=== PATIENT | female | born 1955 | race Caucasian/White ===

== ENCOUNTER 2016-10-20 21:03 | Emergency (ER) | payer MEDICAID ==
[2016-10-20 21:11] VITALS: BP 151/73; BMI 24.2
--- NOTE | 2016-10-20 21:38 | DR.GENAD ---
HPI - PCP Primary Care Physician: CHELA KEITH - Complaint/Symptoms Chief Complaint:: BACK AND NECK PAIN - Nurses notes reviewed Nurses Notes Review: Yes - Source History Provided: Patient - Mode of Arrival Mode of Arrival: Ambulatory - Timing Onset of Chief Complaint: 10/20/16 Came on: Gradually - Duration Duration: Constant Duration: Hours - Location Location: entire spine - Severity Severity: Mild - Modifying Factors Worsens:: massage PMH - PMH Past Medical History: No Past Surgical History: Yes - Family History History of Family Medical Conditions: Yes Family Medical History: Cancer, [place] - Social History Does patient currently use any type of tobacco product: Yes Have you used tobacco products in the last 12 months: Yes Type of Tobacco Use: Cigarettes Does any household member use tobacco: No Alcohol Use: Occasionally Do you use any recreational Drugs:: No Lives With: Friend Lives Where: Home - infectious screening In the last 2 months have you had wt loss of >10#?: NO Have you had fever, night sweats or hemotysis?: No Have you traveled outside the country in the last 6 months?: No Isolation: Standard ROS - Review of Systems Constitutional: No Symptoms Reported Eyes: No Symptoms Reported ENTM: No Symptoms Reported Respiratoy: No Symptoms Reported Cardiovascular: No Symptoms Reported Gastrointestinal/Abdominal: No Symptoms Reported Genitourinary: No Symptoms Reported Neurological: No Symptoms Reported Musculoskeletal: Back Pain (arthritis), Neck Pain (arthritis) Integumentary: No Symptoms Reported Hematologic/Lymphatic: No Symptoms Reported Endocrine: No Symptoms Reported Psychiatric: Depression All Other Systems: Reviewed and Negative PE - Vital Signs Vitals: Temperature 97.7 F Pulse Rate 76 Respiratory Rate 16 Blood Pressure 151/73 O2 Sat by Pulse Oximetry 98 - General Limitations: No Limitations General Appearance: Alert, In No Apparent Distress - Head Head Exam: Normal Inspection - Eyes Eye exam: Normal Appearance. negative: Scleral Icterus, Conjunctival Injection - ENT ENT Exam: Normal Exam, Normal Oropharynx External Ear Exam: Normal External Inspection - Neck Neck Exam: Normal Inspection, Full ROM, Trachea Midline - Chest Chest Inspection: Normal Inspection - Respiratory Respiratory Exam: negative: Accessory Muscle Use, Respiratory Distress - Extremities Extremities Exam: Normal Inspection, Full ROM, Tenderness (spine) - Back Back Exam: Normal Inspection - Neurologic Neurological Exam: Alert, Oriented X3, CN II-XII Intact - Psychiatric Psychiatric Exam: Normal Mood - Skin Skin Exam: Intact, Normal Color - Diagnosis Discharge Problem: Arthralgia Qualifiers: Joint pain location: unspecified Qualified Code(s): M25.50 - Pain in unspecified joint - Discharge Plan Condition: Stable Prescriptions: Ibuprofen [Motrin Tab 800 mg] 800 mg PO Q8H PRN #30 tab PRN Reason: Pain/Inflammation Prednisone [Prednisone Tab 10 mg] 1 dose PO PRN PRN #18 tab PRN Reason: - Follow ups/Referrals Follow ups/Referrals: CHELA KEITH [Primary Care Provider] - 3 days - Instructions
[2016-10-20] MEDS ORDERED: TORADOL 60 MG VIAL IM ONE (21:43)
[2016-10-20] MEDS ORDERED: PREDNISONE TAB 20 MG PO ONE ×2 (21:43→21:53)
[2016-10-20] MEDS ORDERED: TORADOL 60 MG VIAL ONE (21:52)
== END 2016-10-20 22:09 | disposition home or self-care (01) ==
LOC: ER 21:13
DX: M12.9 Arthropathy, unspecified (principal); M46.92 Unspecified inflammatory spondylopathy, cervical region
CPT/HCPCS: 96372; 99282; J1885; J7506

== ENCOUNTER 2017-01-24 10:35 | Emergency (ER) | payer MEDICAID ==
[2017-01-24 10:40] VITALS: BMI 25.4
[2017-01-24] MEDS ORDERED: CATAPRES TAB 0.1 MG PO ONE (10:51)
[2017-01-24] MEDS ORDERED: CATAPRES TAB 0.1 MG ONE (10:53)
--- NOTE | 2017-01-24 11:01 | DR.GENAD ---
HPI - PCP Primary Care Physician: keith - Complaint/Symptoms Chief Complaint Doctors Comments: Patient states that she has been out of her blood pressure medication for a few days. She also states that she has been trying arrange moving her double wide to her property which has been stressful. She denies a history of cardiopulmonary disease. Chief Complaint:: patient stated she was is dizzy and head hurts. she stated she has been having high blood pressure for awhile and has been taken hctz but it is not working - Source History Provided: Patient - Mode of Arrival Mode of Arrival: Ambulatory - Timing Onset of Chief Complaint: 12/01/16 PMH - PMH Past Medical History: Yes Past Medical History: Dyslipidemia, Hypertension Past Surgical History: Yes Surgical History: Abdominal Surgery - Family History History of Family Medical Conditions: Yes Family Medical History: Cancer, [place] - Social History Does patient currently use any type of tobacco product: Yes Have you used tobacco products in the last 12 months: Yes Type of Tobacco Use: Cigarettes How many years tobacco product used: 40 Does any household member use tobacco: No Alcohol Use: None Do you use any recreational Drugs:: No Lives With: Family Lives Where: Home - infectious screening In the last 2 months have you had wt loss of >10#?: NO Have you had fever, night sweats or hemotysis?: No Have you traveled outside the country in the last 6 months?: No Isolation: Standard ROS - Review of Systems Eyes: No Symptoms Reported ENTM: No Symptoms Reported Respiratoy: No Symptoms Reported Cardiovascular: No Symptoms Reported Gastrointestinal/Abdominal: No Symptoms Reported Genitourinary: No Symptoms Reported Neurological: No Symptoms Reported Musculoskeletal: No Symptoms Reported Integumentary: No Symptoms Reported Hematologic/Lymphatic: No Symptoms Reported Endocrine: No Symptoms Reported Psychiatric: No Symptoms Reported All Other Systems: Reviewed and Negative PE - Vital Signs Vitals: Temperature 99.1 F Pulse Rate [Left Brachial] 79 Pulse Rate 76 Respiratory Rate 20 Blood Pressure [Left Arm] 173/73 Blood Pressure 213/99 O2 Sat by Pulse Oximetry 99 - General Limitations: No Limitations General Appearance: Alert, In No Apparent Distress - Head Head Exam: Normal Inspection, Atraumatic - Eyes Eye exam: Normal Appearance, PERRL, EOMI - ENT ENT Exam: Normal Exam External Ear Exam: Normal External Inspection TM/Canal Exam: Bilateral Normal Nose Exam: Normal Nose Exam Mouth Exam: Normal Inspection Throat Exam: Normal Inspection - Neck Neck Exam: Normal Inspection, Full ROM - Chest Chest Inspection: Normal Inspection - Respiratory Respiratory Exam: Normal Lung Sounds Bilat Respiratory Exam: Bilateral Clear to Auscultation - Cardiovascular Cardiovascular Exam: Regular Rate, Normal Rhythm - Abdominal Exam Abdominal Exam: Normal Inspection, Normal Bowel Sounds Abdominal Tenderness: negative: RUQ, RLQ, LUQ, LLQ, Epigastrium, Suprapubic, Diffuse, Mild, Moderate, Severe, Other - Extremities Extremities Exam: Normal Inspection, Full ROM - Back Back Exam: Normal Inspection - Neurologic Neurological Exam: Alert, Oriented X3, CN II-XII Intact - Psychiatric Psychiatric Exam: Normal Affect - Skin Skin Exam: Warm, Dry, Intact Course - Reevaluation 1st: Improved ROR - Labs Reviewed Result Diagrams: 01/24/17 11:00 01/24/17 11:00 Laboratory: WBC 8.0 X10^3/uL (3.6-10.0) 01/24/17 11:00 RBC 3.86 X10^6/uL (3.5-5.4) 01/24/17 11:00 Hgb 13.0 g/dL (12.0-16.0) 01/24/17 11:00 Hct 36.2 % (36.0-47.0) 01/24/17 11:00 MCV 93.8 fL (80.0-100.0) 01/24/17 11:00 MCH 33.7 pg (27.0-34.0) 01/24/17 11:00 MCHC 36.0 g/dL (33.0-35.0) H 01/24/17 11:00 RDW 13.0 % (11.6-16.5) 01/24/17 11:00 Plt Count 259 X10^3/uL (150.0-450.0) 01/24/17 11:00 MPV 7.3 fL (7.4-11.0) L 01/24/17 11:00 Neut % 63.3 % (42.0-75.0) 01/24/17 11:00 Lymph % 23.3 % (21.0-51.0) 01/24/17 11:00 Crook % 10.9 % (0.0-13.0) 01/24/17 11:00 Eos % 1.4 % (0.9-2.9) 01/24/17 11:00 Baso % 1.1 % (0.2-1.0) H 01/24/17 11:00 Neut # 5.1 x10^3/uL (2.2-4.8) H 01/24/17 11:00 Lymph # 1.9 X10^3/uL (1.3-2.9) 01/24/17 11:00 Crook # 0.9 x10^3/uL (0.3-0.8) H 01/24/17 11:00 Eos # 0.1 x10^3/uL (0.0-0.2) 01/24/17 11:00 Baso # 0.1 X10^3/uL (0.0-0.1) 01/24/17 11:00 Absolute Nucleated RBC 0.0 /100WBC 01/24/17 11:00 Sodium 127 mmol/L (136-145) L 01/24/17 11:00 Corrected Sodium TNP 01/24/17 11:00 Potassium 3.8 mmol/L (3.5-5.1) 01/24/17 11:00 Chloride 94 mmol/L (98-107) L 01/24/17 11:00 Carbon Dioxide 28.1 mmol/L (21-32) 01/24/17 11:00 BUN 6 mg/dL (7-18) L 01/24/17 11:00 Creatinine 0.68 mg/dL (0.55-1.02) 01/24/17 11:00 Est GFR (MDRD) Af Amer > 60 (>60) 01/24/17 11:00 Est GFR (MDRD) Non-Af > 60 (>60) 01/24/17 11:00 Glucose 84 mg/dL (65-99) 01/24/17 11:00 Calcium 9.0 mg/dL (8.5-10.1) 01/24/17 11:00 Corrected Calcium TNP 01/24/17 11:00 Total Bilirubin 0.40 mg/dL (0.2-1.0) 01/24/17 11:00 AST 26 Units/L (15-37) 01/24/17 11:00 ALT 30 Units/L (12-78) 01/24/17 11:00 Alkaline Phosphatase 98 Units/L (46-116) 01/24/17 11:00 Total Protein 7.0 g/dL (6.4-8.2) 01/24/17 11:00 Albumin 4.1 g/dL (3.4-5.0) 01/24/17 11:00 Globulin 2.9 g/dL (2.5-4.5) 01/24/17 11:00 Albumin/Globulin Ratio 1.4 Ratio (1.1-2.1) 01/24/17 11:00 Specimen Type Clean catch urine 01/24/17 11:18 Urine Color Yellow (YELLOW) 01/24/17 11:18 Urine Appearance Clear (CLEAR) 01/24/17 11:18 Urine pH 7.0 (5.0 - 8.0) 01/24/17 11:18 Ur Specific [place] 1.005 (1.000-1.030) 01/24/17 11:18 Urine Protein Negative (NEGATIVE) 01/24/17 11:18 Urine Glucose (UA) Negative (NEGATIVE) 01/24/17 11:18 Urine Ketones Negative (NEGATIVE) 01/24/17 11:18 Urine Occult Blood Negative (NEGATIVE) 01/24/17 11:18 Urine Nitrite Negative (NEGATIVE) 01/24/17 11:18 Urine Bilirubin Negative (NEGATIVE) 01/24/17 11:18 Urine Urobilinogen Normal (NORMAL) 01/24/17 11:18 Ur Leukocyte Esterase Negative (NEGATIVE) 01/24/17 11:18 Urine RBC 0-2 /HPF (NEGATIVE) 01/24/17 11:18 Urine WBC 0-2 /HPF (NEGATIVE) 01/24/17 11:18 Ur Squamous Epith Cells Negative /HPF (NEGATIVE) 01/24/17 11:18 Urine Bacteria Trace /HPF (NEGATIVE) 01/24/17 11:18 Ur Culture Indicated? No/not indicated 01/24/17 11:18 - Diagnosis Discharge Problem: Hyponatremia Hypertension Qualifiers: Hypertension type: unspecified Qualified Code(s): I10 - Essential (primary) hypertension - Discharge Plan Condition: Stable Prescriptions: Hydrochlorothiazide [Hydrochlorothiazide 25 mg Tab] 25 mg PO QAM #30 tab - Follow ups/Referrals Follow ups/Referrals: CHELA KEITH [Primary Care Provider] - 3 days - Instructions
[2017-01-24 11:13] LABS: BASOPHILS # (AUTO) 0.1 X10^3/uL (0.0-0.1); BASOPHILS % (AUTO) 1.1 % (0.2-1.0); EOSINOPHILS # (AUTO) 0.1 x10^3/uL (0.0-0.2); EOSINOPHILS % (AUTO) 1.4 % (0.9-2.9); HEMATOCRIT 36.2 % (36.0-47.0); LYMPHOCYTES # (AUTO) 1.9 X10^3/uL (1.3-2.9); LYMPHOCYTES % (AUTO) 23.3 % (21.0-51.0); MEAN CORPUSCULAR HEMOGLOBIN 33.7 pg (27.0-34.0); MEAN CORPUSCULAR VOLUME 93.8 fL (80.0-100.0); MEAN PLATELET VOLUME 7.3 fL (7.4-11.0); MONOCYTES # (AUTO) 0.9 x10^3/uL (0.3-0.8); MONOCYTES % (AUTO) 10.9 % (0.0-13.0); NEUTROPHILS # (AUTO) 5.1 x10^3/uL (2.2-4.8); NEUTROPHILS % (AUTO) 63.3 % (42.0-75.0); PLATELET COUNT 259 X10^3/uL (150.0-450.0); RED BLOOD COUNT 3.86 X10^6/uL (3.5-5.4)
[2017-01-24 11:25] LABS: ALANINE AMINOTRANSFERASE 30 Units/L (12-78); ALBUMIN 4.1 g/dL (3.4-5.0); ALKALINE PHOSPHATASE 98 Units/L (46-116); ASPARTATE AMINO TRANSFERASE 26 Units/L (15-37); BLOOD UREA NITROGEN 6 mg/dL (7-18); CARBON DIOXIDE 28.1 mmol/L (21-32); CHLORIDE 94 mmol/L (98-107); CREATININE 0.68 mg/dL (0.55-1.02); GLUCOSE 84 mg/dL (65-99); SODIUM 127 mmol/L (136-145); eGFR BLACK RACES > 60 (>60); eGFR NON BLACK RACES > 60 (>60)
[2017-01-24 11:37] LABS: BILIRUBIN,URINE NEGATIVE (NEGATIVE); BLOOD/HEMOGLOBIN,URINE NEGATIVE (NEGATIVE); GLUCOSE, URINE NEGATIVE (NEGATIVE); KETONES,URINE NEGATIVE (NEGATIVE); LEUKOCYTE ESTERASE ,URINE NEGATIVE (NEGATIVE); NITRITES,URINE NEGATIVE (NEGATIVE); PROTEIN,URINE NEGATIVE (NEGATIVE); UROBILINOGEN,URINE NORMAL (NORMAL)
[2017-01-24] MEDS ORDERED: MOTRIN TAB 600 MG PO ONE ×2 (11:40→11:41)
[2017-01-24 11:43] LABS: APPEARANCE,URINE CLEAR (CLEAR); BACTERIA,URINE TRACE /HPF (NEGATIVE); COLOR,URINE YELLOW (YELLOW); RBC,URINE 0-2 /HPF (NEGATIVE); SQUAMOUS EPITHELIAL CELL,UR NEGATIVE /HPF (NEGATIVE)
[2017-01-24] MEDS ORDERED: NS 1000 ML 1,000 ML IV ONE (11:52)
[2017-01-24] MEDS ORDERED: NS 1000 ML 1,000 ML ONE (11:56)
[2017-01-24 13:06] VITALS: BP 176/73
== END 2017-01-24 13:06 | disposition home or self-care (01) ==
LOC: ER 11:06
DX: E87.1 Hypo-osmolality and hyponatremia (principal); I10 Essential (primary) hypertension
CPT/HCPCS: 36415; 80053; 81001; 85025; 96365; 96367; 99283; A4222

== ENCOUNTER → 2017-06-16 | Outpatient (CLI) | payer MEDICAID ==
[2017-06-16 10:41] LABS: BILIRUBIN,URINE NEGATIVE (NEGATIVE); BLOOD/HEMOGLOBIN,URINE NEGATIVE (NEGATIVE); GLUCOSE, URINE NEGATIVE (NEGATIVE); KETONES,URINE NEGATIVE (NEGATIVE); LEUKOCYTE ESTERASE ,URINE NEGATIVE (NEGATIVE); NITRITES,URINE NEGATIVE (NEGATIVE); PH,URINE 6.5 (5.0 - 8.0); PROTEIN,URINE NEGATIVE (NEGATIVE); UROBILINOGEN,URINE NORMAL (NORMAL)
[2017-06-16 10:44] LABS: BASOPHILS # (AUTO) 0.1 X10^3/uL (0.0-0.1); BASOPHILS % (AUTO) 0.6 % (0.2-1.0); EOSINOPHILS # (AUTO) 0.1 x10^3/uL (0.0-0.2); EOSINOPHILS % (AUTO) 1.3 % (0.9-2.9); HEMATOCRIT 41.6 % (36.0-47.0); HEMOGLOBIN 14.6 g/dL (12.0-16.0); LYMPHOCYTES # (AUTO) 1.6 X10^3/uL (1.3-2.9); LYMPHOCYTES % (AUTO) 19.2 % (21.0-51.0); MEAN CORPUSCULAR HEMOGLOBIN 33.2 pg (27.0-34.0); MEAN CORPUSCULAR VOLUME 94.6 fL (80.0-100.0); MEAN PLATELET VOLUME 8.1 fL (7.4-11.0); MONOCYTES # (AUTO) 0.6 x10^3/uL (0.3-0.8); MONOCYTES % (AUTO) 7.5 % (0.0-13.0); NEUTROPHILS # (AUTO) 5.9 x10^3/uL (2.2-4.8); NEUTROPHILS % (AUTO) 71.4 % (42.0-75.0); PLATELET COUNT 224 X10^3/uL (150.0-450.0); RED BLOOD COUNT 4.39 X10^6/uL (3.5-5.4); WHITE BLOOD COUNT 8.2 X10^3/uL (3.6-10.0)
[2017-06-16 10:47] LABS: APPEARANCE,URINE CLEAR (CLEAR); BACTERIA,URINE TRACE /HPF (NEGATIVE); COLOR,URINE YELLOW (YELLOW); RBC,URINE 0-2 /HPF (NEGATIVE); SQUAMOUS EPITHELIAL CELL,UR FEW /HPF (NEGATIVE)
[2017-06-16 10:56] LABS: ALANINE AMINOTRANSFERASE 25 Units/L (12-78); ALBUMIN 3.7 g/dL (3.4-5.0); ALKALINE PHOSPHATASE 107 Units/L (46-116); ASPARTATE AMINO TRANSFERASE 19 Units/L (15-37); BLOOD UREA NITROGEN 12 mg/dL (7-18); CARBON DIOXIDE 26.1 mmol/L (21-32); CHLORIDE 98 mmol/L (98-107); CREATININE 0.79 mg/dL (0.55-1.02); SODIUM 131 mmol/L (136-145); TOTAL PROTEIN 7.1 g/dL (6.4-8.2); eGFR BLACK RACES > 60 (>60); eGFR NON BLACK RACES > 60 (>60)
--- NOTE | 2017-06-16 14:02 | RAD ---
Examination: Chest, PA and lateral views History: Preop neck surgery. Comparison reference: None Findings: Normal heart size with no evidence for acute pulmonary or hilar or mediastinal lesion. Ther e is tenting deformity of the left diaphragm and costophrenic angle. Impression: Pleural deformity at the left base is probably related to chronic pleural thickening. Com parison with prior imaging would be helpful to exclude a more acute process. Otherwise, negative ches t. Reported By:
== END ==
LOC: LAB 10:15
PROVIDERS: ATTEND Obstetrics & Gynecology Obstetrics
DX: Z01.818 Encounter for other preprocedural examination (principal); Z01.810 Encounter for preprocedural cardiovascular examination; Z01.811 Encounter for preprocedural respiratory examination; M54.12 Radiculopathy, cervical region
CPT/HCPCS: 36415; 71046; 80053; 81001; 85025; 85610; 85730

== ENCOUNTER 2017-10-02 21:09 | Emergency (ER) | payer MEDICAID ==
[2017-10-02 21:18] VITALS: BP 135/78; BMI 22.8
--- NOTE | 2017-10-02 22:35 | DR.EXTPAIN ---
HPI - Time seen Time seen: 22:31 - PCP Primary Care Physician: Dr. Keith - Complaint/Symptoms Chief Complaint Doctor Comments: Patient states around noon she had problems controlling her left leg and fell. States she is able to lift her left leg but not very high. She is having problems moving both lower legs. States she had neck fusion about ten weeks ago due to arthritis. states she has been having a headache and feeling dizzy today.She denies chest pain or SOB. States her tetanus is not up to date. Chief Complaint:: around lunchtime started feeling very weak and not being able to control her legs or arms Self Treatment fo Chief Complaint: Tramadol 50mg po taken for pain before coming into ER - Nurses notes reviewed Nurses Notes Review: Yes - Source History Provided: Patient - Mode of arrival Mode of Arrival: Wheelchair - Timing Onset of Chief Complaint: 10/01/17 - Context History of: Arthritis - Associated signs and symptoms Associated Signs and Symptoms: Abrasion, Laceration (left leg), Weakness (left leg), Pain, Bruising (left leg and foot), Headache PMH - PMH Past Medical History: Yes Past Medical History: Anxiety, COPD, Depression, Dyslipidemia, Hypertension Past Surgical History: Yes Surgical History: Ortho Surgery - Family History History of Family Medical Conditions: Yes Family Medical History: Cancer - Social History Does patient currently use any type of tobacco product: Yes Have you used tobacco products in the last 12 months: Yes Type of Tobacco Use: Cigarettes Does any household member use tobacco: Yes Alcohol Use: Occasionally Do you use any recreational Drugs:: No Lives With: Friend Lives Where: Home - infectious screening In the last 2 months have you had wt loss of >10#?: NO Have you had fever, night sweats or hemotysis?: No Have you traveled outside the country in the last 6 months?: No Isolation: Standard ROS - Review of Systems Constitutional: No Symptoms Reported, Weakness Eyes: No Symptoms Reported. negative: See HPI, Eye Pain, Blurred Vision, Tearing, Discharge, Photophobia, Diplopia, Other ENTM: No Symptoms Reported, Nose Congestion Respiratoy: No Symptoms Reported Cardiovascular: No Symptoms Reported. negative: See HPI, Chest Pain, Edema, Palpitations, Syncope, Cyanosis, Skin Mottling, Other Gastrointestinal/Abdominal: No Symptoms Reported. negative: See HPI, Abdominal Pain, Constipation, Diarrhea, Nausea, Vomiting, Food Intolerance, Other Genitourinary: No Symptoms Reported. negative: See HPI, Discharge, Dysuria, Frequency, Hematuria, Pain, Bleeding, Other Neurological: No Symptoms Reported, Headache, Numbness, Paresthesia (left lower leg), Weakness, Problems Walking Musculoskeletal: No Symptoms Reported, Left, Leg, Knee Integumentary: Change in Hair/Nails, Lesions, Wound, Bruises Hematologic/Lymphatic: No Symptoms Reported. negative: See HPI, Anemia, Blood Clots, Easy Bleeding, Easy Bruising, Swollen Glands, Lymphadenopathy, Other Endocrine: No Symptoms Reported, See HPI. negative: Excessive Sweating, Flushing, Intolerance to Cold, Intolerance to Heat, Increased Hunger, Increased Thirst, Increased Urine, Unexplained Weight Gain, Unexplained Weight Loss, Failure to Thrive, Decreased Appetite, Other Psychiatric: No Symptoms Reported. negative: See HPI, Anxiety, Depression, Hallucinations, Excessive crying, Suicidal, Other PE - Vital Signs Vitals: Temperature 98.4 F Pulse Rate 107 Respiratory Rate 20 Blood Pressure [Left Arm] 176/73 Blood Pressure 135/78 O2 Sat by Pulse Oximetry 94 - General Limitations: No Limitations General Appearance: Alert, In Distress (slight) - Head Head Exam: Normal Inspection, Atraumatic, Normocephalic - Eyes Eye exam: Normal Appearance, PERRL, EOMI. negative: Scleral Icterus, Conjunctival Injection, Nystagmus, Miosis, Mydrasis, Periorbital Swelling, Periorbital Tenderness, Other - ENT ENT Exam: Normal Exam, Normal Oropharynx, Normal External Ear Exam, Mucous Membranes Moist, TM's Normal Bilaterally - Neck Neck Exam: Normal Inspection, Full ROM, Trachea Midline - Chest Chest Inspection: Normal Inspection. negative: Symmetric Chest Wall Rise, Tenderness, Rash, Abscess, Other - Respiratory Respiratory Exam: Normal Lung Sounds Bilat. negative: Accessory Muscle Use, Chest Wall Tenderness, Prolonged Expiratory Phase, Respiratory Distress, Stridor , Other Respiratory Exam: Bilateral Clear to Auscultation - Cardiovascular Cardiovascular Exam: Regular Rate, Normal Rhythm, Normal Heart Sounds - Abdominal Exam Abdominal Exam: Normal Bowel Sounds, Soft Abdominal Tenderness: negative: RUQ, RLQ, LUQ, LLQ, Epigastrium, Suprapubic, Diffuse, Mild, Moderate, Severe, Other - Extremities Extremities Exam: Normal Inspection, Full ROM, Normal Capillary Refill. negative: Tenderness - Upper Extremities Shoulder Exam: Normal Inspection, Full ROM Arm Exam: Normal Inspection, Full ROM Elbow Exam: Normal Inspection, Full ROM Forearm Exam: Normal Inspection, Full ROM Hand Exam: Normal Inspection, Full ROM Neuromotor Exam: Normal Exam, Wrist Extension Hand Tendon Exam: negative: Flexor Digitorium Profundus (Location), Flexor Digitorium Superficialis (Location), Extensor Tendon (Location), Other Upper Ext. Vascular Exam: Capillary Refill - Lower Extremities Hip/Pelvis Exam: Normal Inspection, Full ROM, Tenderness Upper Leg Exam: Normal Inspection, Full ROM Knee Exam: Normal Inspection, Full ROM Lower Leg Exam: Normal Inspection, Full ROM Ankle Exam: Normal Inspection, Full ROM, Swelling, Abrasion, Ecchymosis (left foot with hyperpigmentation) Foot/Toe Exam: Normal Inspection, Full ROM, Tenderness, Ecchymosis (left foot) Neurovascular/Tendon Exam: Normal Capillary Refill Gait Exam: Not Tested/Not Observed (wheel chair) - Back Back Exam: Normal Inspection, Full ROM - Neurological Neurological Exam: Alert, Oriented X3, CN II-XII Intact, Motor Sensory Deficit, Reflexes Normal. negative: Normal Gait - Psychiatric Psychiatric Exam: Normal Affect, Normal Mood. negative: Depressed, Agitated, Anxious, Flat Affect, Manic, Homicidal Ideation, Suicidal Ideation, Other - Skin Skin Exam: Warm, Dry, Intact, Normal Color Type of Lesion: negative: Rash, Abscess, Laceration, Foreign Body, Bite/Sting, Abrasion, Other Distribution: negative: Generalized, Involves Palms/Soles, Head, Face, Neck, Thorax, Chest, Back, Abdomen, Genitals, LUE, LLE, RUE, RLE, Other Description: negative: Size, Tenderness, Erythematous, Swelling, Macular, Papular, Vesicular, Blisters, Cofluent, Bullous, Petechial, Purpuric, Urticarial , Crusting, Discharge, Fluctuant, Indurated, Other ROR - Labs Reviewed Laboratory Results Reviewed?: Yes (Patient left before all x-ray results and labs were ready) Result Diagrams: 10/02/17 23:29 10/02/17 23:29 - XRAY XRAY Interpreted by: Radiologist (CT lumbar spine: Degeneratiave change without severe stenosis) - Diagnosis Discharge Problem: Degenerative disc disease, lumbar, Contusion of left lower leg Low back pain Qualifiers: Sciatica presence: without sciatica - Discharge Plan Disposition: AGAINST MEDICAL ADVICE Condition: Stable - Follow ups/Referrals Follow ups/Referrals: CHELA KEITH [Primary Care Provider] - 3 days - Instructions
--- NOTE | 2017-10-02 23:31 | CT ---
CT cervical spine without contrast Indication: Neck pain and left leg numbness Technique: Helical images through the cervical spine without contrast. Coronal and sagittal reformats provided. Findings: There is hardware at the C5 through C7, with disc ectomy and disc degenerative changes. No severe stenosis seen with mild right neural foraminal narrowing at C5-C6 noted due to osteophytes. Th e craniocervical junction and cervicothoracic junctions are intact. Upper thoracic spine is normal. S leslie canal is relatively patent for CT technique. Prevertebral soft tissues are normal. At soft tiss ues of the upper chest and neck show no acute abnormality with minimal vascular plaque. Posterior fos sa structures are intact. Impression: 1. No acute fracture 2. Mild degenerative changes without severe stenosis. Reported By:
--- NOTE | 2017-10-02 23:31 | CT ---
Exam: Head CT without contrast History: 61-year-old male with headache and left leg numbness Comparison: None Technique: Axial imaging was performed from the vertex to the base the skull without intravenous cont rast being administered. Subsequently coronal and sagittal reformations were generated. Automated exp osure control technique was used with this exam Findings: No evidence of intracranial hemorrhage, extracerebral fluid collections, or intracranial mass. Ventri cles are symmetric in size and position with no mass effect identified. Patchy low density is present in a periventricular deep white matter distribution. This most likely reflects mild degree of chroni c small vessel ischemic change. On the bone windows, no acute abnormality is seen. Visualized aspect of the paranasal sinuses and mastoid air cells are clear. Impression: No acute intracranial abnormality is seen on this exam. Reported By:
--- NOTE | 2017-10-02 23:33 | CT ---
CT lumbar spine without contrast Indication: Lower back pain and left leg numbness. Technique: Helical images through the lumbar spine without contrast. Coronal and sagittal reformats p rovided. Findings: Urinary bladder is distended. Vascular plaque is seen in the aorta. Vertebral body heights are normal. There is lower lumbar spine facet arthropathy and disc degenerative change worse on the l eft at L5-S1. Mild left L5-S1 neural foramen narrowing noted. Within limits of CT, there is disc bulg e at L4-L5 and L3-L4 without high-grade stenosis. No cortical lucency or malalignment seen. No destru ctive osseous lesion identified. Mild SI joint DJD noted. Impression: 1. Degenerative change without severe stenosis. 2. No fracture. Vascular plaque, urinary bladder distension with other incidental findings as above Reported By:
[2017-10-02 23:39] LABS: BASOPHILS % (AUTO) 0.4 % (0.2-1.0); EOSINOPHILS % (AUTO) 0.1 % (0.9-2.9); HEMATOCRIT 38.9 % (36.0-47.0); HEMOGLOBIN 13.6 g/dL (12.0-16.0); LYMPHOCYTES # (AUTO) 1.6 X10^3/uL (1.3-2.9); LYMPHOCYTES % (AUTO) 22.4 % (21.0-51.0); MEAN CORPUSCULAR HEMOGLOBIN 32.6 pg (27.0-34.0); MEAN CORPUSCULAR VOLUME 93.1 fL (80.0-100.0); MEAN PLATELET VOLUME 7.7 fL (7.4-11.0); MONOCYTES # (AUTO) 0.5 x10^3/uL (0.3-0.8); MONOCYTES % (AUTO) 7.1 % (0.0-13.0); NEUTROPHILS # (AUTO) 4.9 x10^3/uL (2.2-4.8); PLATELET COUNT 250 X10^3/uL (150.0-450.0); RED BLOOD COUNT 4.18 X10^6/uL (3.5-5.4)
[2017-10-02 23:48] LABS: ALANINE AMINOTRANSFERASE 28 Units/L (12-78); ALBUMIN 4.2 g/dL (3.4-5.0); ALKALINE PHOSPHATASE 136 Units/L (46-116); ASPARTATE AMINO TRANSFERASE 24 Units/L (15-37); BLOOD UREA NITROGEN 7 mg/dL (7-18); CALCIUM 8.9 mg/dL (8.5-10.1); CARBON DIOXIDE 26.5 mmol/L (21-32); CHLORIDE 94 mmol/L (98-107); COR NA(FOR HYPERGLY) 132 mmol/L (136-145); CREATININE 0.67 mg/dL (0.55-1.02); SODIUM 131 mmol/L (136-145); eGFR BLACK RACES > 60 (>60); eGFR NON BLACK RACES > 60 (>60)
--- NOTE | 2017-10-03 05:25 | RAD ---
Left foot-three views Indication: Pain after fall Findings: There is great toe MTP joint degenerative change with bunion deformity and hallux valgus. T here is no cortical lucency or malalignment. Impression: Great toe MTP joint degenerative change and bunion deformity without acute fracture Reported By:
== END 2017-10-03 00:30 | disposition left against medical advice (07) ==
LOC: ER 21:09
DX: S80.12XA Contusion of left lower leg, initial encounter (principal); M51.36 Other intervertebral disc degeneration, lumbar region; M54.5 Low back pain; W19.XXXA Unspecified fall, initial encounter
CPT/HCPCS: 36415; 70450; 72125; 72131; 73630; 80053; 85025; 99282; 99283